=== PATIENT | female | born 1965 | race African-American/Black ===

== ENCOUNTER 2018-03-27 09:24 | Observation (INO) | payer SELFPAY ==
--- NOTE | 2018-03-27 10:02 | PDOC ---
Attending Attestation - Resident Resident Name: Ciara Shin - ED Attending Attestation I have performed the following: I have examined & evaluated the patient, The case was reviewed & discussed with the resident, I agree w/resident's findings & plan, Exceptions are as noted - HPI HPI: 03/27/18 10:03 Ms Giles is a 52 yo F who presents for evaluation of an allergic reaction She is s/p eyebrow tinting at home by her daughter At the time she did not note and pain or burning Dye stayed on for 2 minutes and was wiped off Subsequently, she noted some swelling last night She took a benadrylllll but noted increased swelling of her face today AND some difficulty swallowing Of note: pt has previously had an allergic reaction to dying her hair almost 12 years ago 03/27/18 10:19 - Physicial Exam PE: 03/27/18 10:03 Pt is awake and alert Skin: bilateral perioccular swelling, right > left ?bruising noted around the right eye Eyebrows with scabbing?? HEENT: Uvula midline, no drooling, no voice changes Cardiac: RRR, no murmur Lungs: CTA B/L, no wheezing Abd: non tender to palpation Ext: No lower extremity edema Musculoskeletal: no deformities, 03/27/18 10:19 - Medical Decision Making 03/27/18 10:07 Presentation is consistent with: Contact dermatitis/severe allergic reaction I am concerned about this patient as she is reporting a globus sensation Will give: Solumedrol, Benadrly, H2 dayana I do not believe at this time she requires Epi Will closely monitor and likely place on observation 03/27/18 16:17 Pt improved while in the ER Repeat assessment reveals swelling beneath the left neck Will give Benadryl
[2018-03-27] MEDS ORDERED: FAMOTIDINE 20 MG/50 ML IVPB 20 MG/50 ML MG IVPB ONE ×2 (10:14→10:36)
[2018-03-27] MEDS ORDERED: methylPREDNISolone NA SUCC 125 MG/2 ML VIAL IVPB ONE (10:14)
[2018-03-27] MEDS ORDERED: methylPREDNISolone NA SUCC 125 MG/2 ML VIAL ONE (10:32)
[2018-03-27 10:45] LABS: EOS % 4.4 % (0-4.5); HEMATOCRIT 36.4 % (32.4-45.2); HEMOGLOBIN 12.2 GM/dL (10.7-15.3); LYMPH % 36.5 % (8-40); MCH 29.9 pg (25.7-33.7); MCHC 33.6 g/dl (32.0-36.0); MEAN CELL VOLUME 89.1 fl (80-96); MEAN PLT VOLUME 8.4 fl (7.5-11.1); MONO % 12.5 % (3.8-10.2); NEUT % 45.6 % (42.8-82.8); PLATELET COUNT 286 K/MM3 (134-434); RBC 4.08 M/mm3 (3.60-5.2); WHITE BLOOD COUNT 4.5 K/mm3 (4.0-10.0)
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
[2018-03-27 11:08] LABS: ANION GAP 7 MMOL/L (8-16); BLOOD UREA NITROGEN 25 mg/dL (7-18); CALCIUM 8.4 mg/dL (8.5-10.1); CHLORIDE 107 mmol/L (98-107); CO2 27 mmol/L (21-32); CREATININE 0.9 mg/dL (0.55-1.3); GLUCOSE,RANDOM 84 mg/dL (74-106); POTASSIUM 4.4 mmol/L (3.5-5.1); SODIUM 141 mmol/L (136-145)
[2018-03-27] MEDS ORDERED: ALBUTEROL SO4 2.5/IPRATROPIUM 0.5 INH SOL 3 ML VIAL.NEB. NEB ONE ×2 (11:46→12:53)
[2018-03-27] MEDS ORDERED: ALBUTEROL SO4 0.083% IH SOL 2.5 MG/3 ML VIAL.NEB. NEB PRN (15:54)
[2018-03-27] MEDS ORDERED: SODIUM CHLORIDE 1,000 ML IV STA (15:54)
--- NOTE | 2018-03-27 16:18 | HP ---
CHIEF COMPLAINT: eye swelling. PCP: HISTORY OF PRESENT ILLNESS: 52 yo F presents with three day history of eye swelling. She states that three days prior she was dying her eyebrows when her eyebrows began to burn and become irritated. She washed out dye and tried OTC creams with little to no relief. Pain and swelling have worsened to point where she has come to ED. Pain started at her eye brows and now involves the whole side of her face. She denies CP,SOB, abdominal pain, fever or chills. ER course was notable for: (1)solumedrol 125mg IV (2)Benadryl (3)famotidine. Recent Travel:denies PAST MEDICAL HISTORY:Pulmonary Embolism in past. PAST SURGICAL HISTORY: Left foot surgery. Social History: Smoking:never Alcohol:denies Drugs: denies Family History: Allergies No Known Allergies Allergy (Verified 03/27/18 09:26) HOME MEDICATIONS: Home Medications Medication Instructions Recorded NK [No Known Home Medication] 03/27/18 REVIEW OF SYSTEMS CONSTITUTIONAL: Absent: fever, chills, diaphoresis, generalized weakness, malaise, loss of appetite, weight change HEENT: periorbital swelling and tenderness. Absent: rhinorrhea, nasal congestion, throat pain, throat swelling, difficulty swallowing, mouth swelling, ear pain, eye pain, visual changes CARDIOVASCULAR: Absent: chest pain, syncope, palpitations, irregular heart rate, lightheadedness , peripheral edema RESPIRATORY: Absent: cough, shortness of breath, dyspnea with exertion, orthopnea, wheezing, stridor, hemoptysis GASTROINTESTINAL: Absent: abdominal pain, abdominal distension, nausea, vomiting, diarrhea, constipation, melena, hematochezia GENITOURINARY: Absent: dysuria, frequency, urgency, hesitancy, hematuria, flank pain, genital pain MUSCULOSKELETAL: Absent: myalgia, arthralgia, joint swelling, back pain, neck pain SKIN: Absent: rash, itching, pallor HEMATOLOGIC/IMMUNOLOGIC: Absent: easy bleeding, easy bruising, lymphadenopathy, frequent infections ENDOCRINE: Absent: unexplained weight gain, unexplained weight loss, heat intolerance, cold intolerance NEUROLOGIC: Absent: headache, focal weakness or paresthesias, dizziness, unsteady gait, seizure, mental status changes, bladder or bowel incontinence PSYCHIATRIC: Absent: anxiety, depression, suicidal or homicidal ideation, hallucinations. PHYSICAL EXAMINATION Vital Signs - 24 hr 03/27/18 03/27/18 09:25 13:25 Temperature 98.1 F Pulse Rate 75 Pulse Rate [ 83 Apical] Respiratory 16 20 Rate Blood Pressure 131/84 Blood Pressure 116/80 [Left Arm] O2 Sat by Pulse 99 100 Oximetry (%) GENERAL:AAOx3 , Mild distress HEAD:periorbital edema, erythema and warmth, eye brow with purulent drainage. EYES:PERRLA, EOMI, sclera anicteric, conjunctiva clear. No lid lag. EARS, NOSE, THROAT: Ears normal, nares patent, oropharynx clear without exudates. Moist mucous membranes. NECK: Normal range of motion, supple without lymphadenopathy, JVD, or masses. LUNGS: Breath sounds equal, clear to auscultation bilaterally. No wheezes, and no crackles. No accessory muscle use. HEART: Regular rate and rhythm, normal S1 and S2 without murmur, rub or gallop. ABDOMEN: Soft, nontender, not distended, normoactive bowel sounds, no guarding, no rebound, no masses. No hepatomegaly or splenomegaly. MUSCULOSKELETAL: Normal range of motion at all joints. No bony deformities or tenderness. No CVA tenderness. UPPER EXTREMITIES: 2+ pulses, warm, well-perfused. No cyanosis. No clubbing. No peripheral edema. LOWER EXTREMITIES: 2+ pulses, warm, well-perfused. No calf tenderness. No peripheral edema. NEUROLOGICAL: Cranial nerves II-XII intact. Normal speech. Normal gait. PSYCHIATRIC: Cooperative. Good eye contact. Appropriate mood and affect. SKIN: Warm, dry, normal turgor, no rashes or lesions noted, normal capillary refill. Laboratory Results - last 24 hr 03/27/18 03/27/18 10:30 10:30 WBC 4.5 RBC 4.08 Hgb 12.2 Hct 36.4 MCV 89.1 MCH 29.9 MCHC 33.6 RDW 14.0 Plt Count 286 MPV 8.4 Absolute Neuts (auto) 2.0 Neutrophils % 45.6 Lymphocytes % 36.5 Monocytes % 12.5 H Eosinophils % 4.4 Basophils % 1.0 Nucleated RBC % 0 Sodium 141 Potassium 4.4 Chloride 107 Carbon Dioxide 27 Anion Gap 7 L BUN 25 H Creatinine 0.9 Creat Clearance w eGFR > 60 Random Glucose 84 Calcium 8.4 L ASSESSMENT/PLAN: 52 yo F presents with 3 day history of worsening eye swelling admitted for allergic reaction. Problem List - Problem (1) Allergic reaction Assessment/Plan: * Solumedrol 40mg IV Q6h * Benadryl 12.5mg IV Q6h * Famotidine 20mg IV BID * monitor closely for airway compromise. Visit type - Emergency Visit Emergency Visit: Yes ED Registration Date: 03/27/18 Care time: The patient presented to the Emergency Department on the above date and was hospitalized for further evaluation of their emergent condition. - New Patient This patient is new to me today: Yes Date on this admission: 03/30/18 - Critical Care Critical Care patient: No
--- NOTE | 2018-03-27 18:58 | PN ---
Teaching Attending Note Name of Resident: Serafin Lancaster ATTENDING PHYSICIAN STATEMENT I saw and evaluated the patient. I reviewed the resident's note and discussed the case with the resident. I agree with the resident's findings and plan as documented. SUBJECTIVE: OBJECTIVE: ASSESSMENT AND PLAN:
[2018-03-27] MEDS ORDERED: FAMOTIDINE 20 MG/50 ML IVPB 20 MG/50 ML MG IVPB SCH ×2 (22:00)
[2018-03-27] MEDS: methylPREDNISolone NA SUCC 40 MG/1 ML VIAL IVPUSH SCH (22:37)
[2018-03-28] MEDS: methylPREDNISolone NA SUCC 40 MG/1 ML VIAL IVPUSH SCH ×4 (02:15→21:47)
[2018-03-28 05:11] VITALS: BMI 25.4
[2018-03-28 09:05] LABS: BASO % 0.1 % (0-2.0); HEMATOCRIT 35.6 % (32.4-45.2); HEMOGLOBIN 12.5 GM/dL (10.7-15.3); LYMPH % 10.5 % (8-40); MCH 31.2 pg (25.7-33.7); MCHC 35.2 g/dl (32.0-36.0); MEAN CELL VOLUME 88.6 fl (80-96); MEAN PLT VOLUME 8.9 fl (7.5-11.1); MONO % 2.4 % (3.8-10.2); PLATELET COUNT 302 K/MM3 (134-434); RBC 4.02 M/mm3 (3.60-5.2); RDW 14.3 % (11.6-15.6); WHITE BLOOD COUNT 8.1 K/mm3 (4.0-10.0)
[2018-03-28 09:37] LABS: ALBUMIN 3.6 g/dl (3.4-5.0); ALK PHOS 61 U/L (45-117); ANION GAP 10 MMOL/L (8-16); BILIRUBIN,TOTAL 0.4 mg/dL (0.2-1); BLOOD UREA NITROGEN 19 mg/dL (7-18); CALCIUM 8.9 mg/dL (8.5-10.1); CHLORIDE 108 mmol/L (98-107); CO2 22 mmol/L (21-32); CREATININE 0.8 mg/dL (0.55-1.3); GLUCOSE,RANDOM 120 mg/dL (74-106); MAGNESIUM 2.3 mg/dL (1.8-2.4); PHOSPHOROUS 3.8 mg/dL (2.5-4.9); POTASSIUM 4.2 mmol/L (3.5-5.1); SGOT/AST 17 U/L (15-37); SGPT/ALT 26 U/L (13-61); SODIUM 140 mmol/L (136-145); TOT PROT 7.4 g/dl (6.4-8.2)
[2018-03-28] MEDS ORDERED: diphenhydrAMINE HCL 25 MG CAPSULE (FP) PO STA (09:37)
--- NOTE | 2018-03-28 09:45 | PN ---
Physical Exam: SUBJECTIVE: Allergic reaction OBJECTIVE: She is sitting in her bed in no severe distress, complains of pain and tenderness, sttes that she had food with no choaking but had a little irritation , Face: swelling around the eyes has improved, mild tenderness and warmth in the area, she is AA and skin loook a bit erythematous in my evaluation motuth: no tongue swelling, no lip swepling CVS:s1S2 CTAB, GOOD AIR MOVEMENT AND WHEEZING aB:bs+ nt/nd EXT: no edema, 2+ DP pulses Vital Signs Period Temp Pulse Resp BP Sys/Wheeler Pulse Ox Last 24 Hr 97.8 F-98.6 F 72-89 17-20 110-147/58-96 100-100 Laboratory Results - last 24 hr 03/27/18 03/27/18 03/28/18 10:30 10:30 08:00 WBC 4.5 8.1 RBC 4.08 4.02 Hgb 12.2 12.5 Hct 36.4 35.6 MCV 89.1 88.6 MCH 29.9 31.2 MCHC 33.6 35.2 RDW 14.0 14.3 Plt Count 286 302 MPV 8.4 8.9 Absolute Neuts (auto) 2.0 7.0 Neutrophils % 45.6 87.0 H D Lymphocytes % 36.5 10.5 D Monocytes % 12.5 H 2.4 L D Eosinophils % 4.4 0.0 D Basophils % 1.0 0.1 Nucleated RBC % 0 0 Sodium 141 Potassium 4.4 Chloride 107 Carbon Dioxide 27 Anion Gap 7 L BUN 25 H Creatinine 0.9 Creat Clearance w eGFR > 60 Random Glucose 84 Calcium 8.4 L Phosphorus Magnesium Total Bilirubin AST ALT Alkaline Phosphatase Total Protein Albumin 03/28/18 08:00 WBC RBC Hgb Hct MCV MCH MCHC RDW Plt Count MPV Absolute Neuts (auto) Neutrophils % Lymphocytes % Monocytes % Eosinophils % Basophils % Nucleated RBC % Sodium 140 Potassium 4.2 Chloride 108 H Carbon Dioxide 22 Anion Gap 10 BUN 19 H Creatinine 0.8 Creat Clearance w eGFR > 60 Random Glucose 120 H Calcium 8.9 Phosphorus 3.8 Magnesium 2.3 Total Bilirubin 0.4 AST 17 ALT 26 Alkaline Phosphatase 61 Total Protein 7.4 Albumin 3.6 Active Medications Generic Name Dose Route Start Last Admin Trade Name Freq PRN Reason Stop Dose Admin Albuterol Sulfate 1 amp 03/27/18 15:54 Ventolin 0.083% Nebulizer Soln - NEB Q4H PRN SHORT OF BREATH/WHEEZING Diphenhydramine HCl 50 mg 03/28/18 09:45 Benadryl - PO Q6H MIREYA Enoxaparin Sodium 40 mg 03/28/18 10:00 Lovenox - SQ DAILY MIREYA Methylprednisolone Sodium Succinate 40 mg 03/27/18 21:00 03/28/18 02:15 Solu-Medrol - IVPUSH 40 mg Q6H-IV MIREYA Administration Naproxen 500 mg 03/28/18 10:00 Naprosyn - PO BID MIREYA ASSESSMENT/PLAN: 52 Y/O f WITH ALLERGIC REACTION TO THE DYE SHE USED ON HER EYE BROW, HER SWELLING AND PAIN HAS IMPROVED COMPARING TO YESTERDAS shE HAS NO UPEPR AIRWAY COMPLAINTS AT THIS TIME SHE IS WATING SOLID FOOD wILL c/w STANDING STEROIDS TILL TOMORROW, WILL CHANGE BENADRUYL TO STANDING DOSE Will start on clinda for possible cellulitis will follow up with ENT evaluation and recs Will control pain with naproxen fc Dispo: possible home tomorrow she has no services Visit type - Emergency Visit Emergency Visit: Yes ED Registration Date: 03/27/18 Care time: The patient presented to the Emergency Department on the above date and was hospitalized for further evaluation of their emergent condition. - New Patient This patient is new to me today: No - Critical Care Critical Care patient: No - Discharge Referral Referred to [facility] Yes
[2018-03-28] MEDS: ENOXAPARIN NA (PORCINE) 40 MG/0.4 ML DISP.SYRIN SQ SCH (09:46)
[2018-03-28] MEDS: diphenhydrAMINE HCL 25 MG CAPSULE (FP) PO SCH ×4 (09:59→23:46)
[2018-03-28] MEDS ORDERED: methylPREDNISolone NA SUCC 125 MG/2 ML VIAL IVPUSH SCH (10:00)
[2018-03-28] MEDS: CLINDAMYCIN HCL 150 MG CAPSULE (FP) PO SCH ×3 (10:00→21:47)
[2018-03-28] MEDS ORDERED: methylPREDNISolone NA SUCC 125 MG/2 ML VIAL IVPUSH ONE (10:34)
[2018-03-28] MEDS: NAPROXEN 500 MG TABLET (FP) PO SCH ×2 (10:40→18:05)
[2018-03-28] MEDS: BACITRACIN 15 GM TUBE TOPICAL OINTMENT TP SCH ×2 (18:05→21:49)
[2018-03-29] MEDS: methylPREDNISolone NA SUCC 40 MG/1 ML VIAL IVPUSH SCH ×3 (02:51→15:40)
[2018-03-29] MEDS: diphenhydrAMINE HCL 25 MG CAPSULE (FP) PO SCH ×2 (06:26→12:29)
[2018-03-29] MEDS: CLINDAMYCIN HCL 150 MG CAPSULE (FP) PO SCH ×3 (06:26→22:30)
[2018-03-29] MEDS ORDERED: PT OWN MED DRAWER 7, Y5N ONE ×2 (08:53→09:05)
[2018-03-29] MEDS: BACITRACIN 15 GM TUBE TOPICAL OINTMENT TP SCH ×2 (09:20→22:30)
[2018-03-29] MEDS: ENOXAPARIN NA (PORCINE) 40 MG/0.4 ML DISP.SYRIN SQ SCH ×2 (09:21→09:29)
[2018-03-29] MEDS: NAPROXEN 500 MG TABLET (FP) PO SCH ×2 (09:31→17:48)
[2018-03-29] MEDS ORDERED: diphenhydrAMINE HCL 25 MG CAPSULE (FP) PO PRN (15:12)
--- NOTE | 2018-03-29 15:20 | PN ---
Physical Exam: SUBJECTIVE: Patient seen and examined, No more complain of pain any more OBJECTIVE: Vital Signs Period Temp Pulse Resp BP Sys/Wheeler Pulse Ox Last 24 Hr 97.9 F-98.4 F 69-84 20-20 120-140/63-82 97-97 the face swelling has improved significantly with no more tenderness at this time CVS:S1S2 CTAB Abd;B S+ NT/ND A&oX3 Active Medications Generic Name Dose Route Start Last Admin Trade Name Freq PRN Reason Stop Dose Admin Albuterol Sulfate 1 amp 03/27/18 15:54 Ventolin 0.083% Nebulizer Soln - NEB Q4H PRN SHORT OF BREATH/WHEEZING Bacitracin 1 applic 03/28/18 10:00 03/29/18 09:20 Bacitracin - TP 1 applic BID MIREYA Administration Clindamycin HCl 450 mg 03/28/18 10:00 03/29/18 14:32 Cleocin - PO 450 mg TID MIREYA Administration Diphenhydramine HCl 25 mg 03/29/18 15:12 Benadryl - PO Q6H PRN FOR ITCHING Enoxaparin Sodium 40 mg 03/28/18 10:00 03/29/18 09:29 Lovenox - SQ Not Given DAILY MIREYA Naproxen 500 mg 03/28/18 10:00 03/29/18 09:31 Naprosyn - PO 500 mg BIDWM MIREYA Administration ASSESSMENT/PLAN: Facial swelling: likely a combination of allergic reaction and cellulitis on top of it, now resolved, will DC steroids, will C/W benadryl PRN. C/W clindamycin for total of 7 days Dispo: tomorrow for 24 hours after the observation after the resolution of her symptoms. Visit type - Emergency Visit Emergency Visit: Yes ED Registration Date: 03/27/18 Care time: The patient presented to the Emergency Department on the above date and was hospitalized for further evaluation of their emergent condition. - New Patient This patient is new to me today: No - Critical Care Critical Care patient: No - Discharge Referral Referred to [facility] No
[2018-03-30] MEDS: CLINDAMYCIN HCL 150 MG CAPSULE (FP) PO SCH ×2 (06:23→13:47)
[2018-03-30] MEDS: NAPROXEN 500 MG TABLET (FP) PO SCH (08:00)
[2018-03-30] MEDS: ENOXAPARIN NA (PORCINE) 40 MG/0.4 ML DISP.SYRIN SQ SCH (10:31)
[2018-03-30] MEDS: BACITRACIN 15 GM TUBE TOPICAL OINTMENT TP SCH (10:35)
--- NOTE | 2018-03-30 11:25 | DS ---
Physical Exam: SUBJECTIVE: Patient seen and examined at bedside. Feels much better today. Swelling has improved and pain is well controlled. Denies CP,CHAPA, SOB, abdominal pain, nausea or vomiting. OBJECTIVE: Vital Signs Period Temp Pulse Resp BP Sys/Wheeler Pulse Ox Last 24 Hr 97.6 F-98.3 F 60-74 20-20 126-140/73-80 97-98 PHYSICAL EXAM GENERAL: AAOx3, NAD HEAD: NCAT EYES: PERRL, EOMI, sclera anicteric, conjunctiva clear. ENT: Ears normal, nares patent, oropharynx clear without exudates, moist mucous membranes. NECK: Trachea midline, full range of motion, supple. LUNGS: CTAB, no wheezes, no crackles, no accessory muscle use. HEART: RRR, S1, S2 without murmur, rub or gallop. ABDOMEN: Soft, NTND,NABS, no guarding, no rebound, no hepatosplenomegaly, no masses. EXTREMITIES: 2+ pulses, warm, well-perfused, no edema. NEUROLOGICAL: Cranial nerves II through XII grossly intact. Normal speech, gait not observed. PSYCH: Normal mood, normal affect. SKIN: periorbital swelling resolved, eye brows no longer purulent drainage. LABS HOSPITAL COURSE: 52 yo F presents with three day history of eye swelling. She states that three days prior she was dying her eyebrows when her eyebrows began to burn and become irritated. She washed out dye and tried OTC creams with little to no relief. Pain and swelling have worsened to point where she has come to ED. Pain started at her eye brows and now involves the whole side of her face. She was given a short course of IV solumedrol along with benadryl and famotidine. Antibiotics started for infection of affected eye brows. She will be sent with prescription for bacitracin ointment, Benadryl, naproxen, and Clindamycin TID for 5 days. Patient is stable for discharge and can resume regular activity and diet. Instructed to follow up with PMD in one week and return to ED if symptoms of swelling return or develops fever, chills or diarrhea. Date of Admission:03/27/18 Date of Discharge: 03/30/18 Minutes to complete discharge: 35 Discharge Summary Reason For Visit: ALLERGIC REACTION Current Active Problems Allergic reaction (Acute) Condition: Fair - Instructions Diet, Activity, Other Instructions: You have been seen and treated for an allergic reaction to hair dye. You will be sent home with a medications to be continued. Increase activity as tolerated. Resume a regular diet. If symptoms return or you develop fever or chills please return to ER immediately. MEDS to continue: Bacitracin oitment to be applied to eye brows twice a day for 7 days Clindamycin is an antibiotic that you will take three times a day for 5 days. You can take Benadryl 50mg by mouth as needed for itching Naproxen is a pain medication that can be taken as needed for pain. Please follow up with your primary doctor in one week. Disposition: HOME - Home Medications Comprehensive Discharge Medication List: Ambulatory Orders Bacitracin - [Bacitracin Topical Ointment -] 1 applic TP BID 7 Days #1 tube Clindamycin [Cleocin -] 450 mg PO TID 5 Days #15 capsule 03/30/18 Diphenhydramine HCl [Benadryl Capsule -] 25 mg PO Q6H PRN #20 capsule 03/30/18 Naproxen [Naprosyn -] 500 mg PO BIDWM PRN 5 Days #10 tablet 03/30/18 Problem List - Problems (1) Allergic reaction This patient is new to me today: Yes Date on this admission: 03/30/18 Emergency Visit: No Critical Care patient: No - Discharge Referral Referred to [facility] No
[2018-03-30 14:57] VITALS: BP 125/67; PULSE 79; TEMP 98.4
--- NOTE | 2018-03-30 15:48 | PN ---
Teaching Attending Note Name of Resident: Serafin Lancaster ATTENDING PHYSICIAN STATEMENT I saw and evaluated the patient. I reviewed the resident's note and discussed the case with the resident. I agree with the resident's findings and plan as documented. SUBJECTIVE:Feels improved OBJECTIVE: Vital Signs Period Temp Pulse Resp BP Sys/Wheeler Pulse Ox Last 24 Hr 97.6 F-98.4 F 60-79 20-20 125-136/67-77 97-98 Young f not in distress HEENT:Improving rash Mm moist mild anemia NECK: No JVd No Bruit CHEST: CTA B/L CVS: s1S2 R ABD: No tenderness EXT: No zaire afeet; INDUSTRIAL PAINTER: AOX3 non focal ASSESSMENT AND PLAN:52 yrs old F admitted with eyes brow rash after hair color application improving on current thearpy, agrees with plan of care can be discharged home.
== END 2018-03-30 14:33 | disposition home or self-care (01) ==
LOC: JERFT 09:24 → JER 09:24 → JERBED 13:23 → J5S 20:01
PROVIDERS: ADMIT Internal Medicine; ATTEND Internal Medicine
CPT/HCPCS: 36415; 71045-TC-FY; 80048; 80053; 83735; 84100; 85025; 99283-25; G0378; J7030